=== PATIENT | male | born 1965 | race Hispanic/Latino ===

== ENCOUNTER 2017-11-07 01:20 | Inpatient (IN) | payer OTHER, SELFPAY ==
[2017-11-07] MEDS ORDERED: Nitroglycerin 0.4 MG TAB (25 Tab Bottle) ONE (01:51)
[2017-11-07] MEDS ORDERED: Nitroglycerin 2% Ointment 1 INCH/1 GM Packet ONE (01:55)
[2017-11-07 01:57] LABS: #Basophils 0.1 thou/uL (0.0-0.2); #Eosinphils 0.2 thou/uL (0.0-0.7); #Lymphocytes 3.6 thou/uL (1.20-3.40); #Monocytes 0.8 thou/uL (0.11-0.59); #Neutrophils 6.3 thou/uL (1.40-6.50); %Basophils 1.2 % (0.0-1.0); %Eosinophils 1.6 % (0.0-10.0); %Lymphocytes 32.8 % (21.0-51.0); %Monocytes 7.1 % (0.0-10.0); %Neutrophils 57.2 % (42.0-75.0); Hemoglobin 15.8 g/dL (14.0-18.0); Mean Corpuscular HGB CONC 36.1 g/dL (32.0-36.0); Mean Corpuscular Hemoglobin 32.9 pg (27.0-31.0); Mean Corpuscular Volume 91.1 fL (78.0-98.0); Mean Platelet Volume 6.3 fL (7.4-10.4); Platelet Count 287 thou/uL (130-400); RBC Distribution Width 11.9 % (11.5-14.5); Red Blood Cell (RBC) Count 4.79 mill/uL (4.70-6.10)
[2017-11-07 02:19] LABS: ALT (SGPT) 19 U/L (8-55); AST (SGOT) 23 U/L (5-34); Albumin 4.6 g/dL (3.5-5.0); Alkaline Phosphatase 113 U/L (40-150); Anion Gap 14 mmol/L (10-20); BUN (Urea Nitrogen) 13 mg/dL (8.4-25.7); Bilirubin, Total 0.5 mg/dL (0.2-1.2); CK (CPK) 339 U/L (30-200); Calc. Creatinine Clearance 0 mL/min (70-130); Calcium 9.8 mg/dL (7.8-10.44); Carbon Dioxide 26 mmol/L (22-29); Chloride 101 mmol/L (98-107); Estimated GFR-MDRD 76; Glucose 124 mg/dL (70-105); Lipase 28 U/L (8-78); Potassium 3.9 mmol/L (3.5-5.1); Protein, Total 7.6 g/dL (6.0-8.3); Sodium 137 mmol/L (136-145)
[2017-11-07 02:20] LABS: CKMB 4.3 ng/mL (0-6.6); Troponin I 0.047 ng/mL (< 0.028)
[2017-11-07] MEDS ORDERED: Sodium Chloride 0.9% 1,000 ML IV SCH (03:00)
[2017-11-07] MEDS ORDERED: hydrALAZINE 20 MG/ML VIAL SLOW IVP PRN (03:11)
[2017-11-07] MEDS ORDERED: Amlodipine 10 MG TAB PO SCH (03:15)
[2017-11-07] MEDS ORDERED: Lidocaine 2% Viscous Solution 10 ML, Aluminum & Magnesium Hydroxide 30 ML SSW SCH (03:15)
--- NOTE | 2017-11-07 03:30 | HP ---
CHIEF COMPLAINT: Chest pain. HISTORY OF PRESENT ILLNESS: Patient is a 52-year-old male with no significant past medical history who presents to the hospital with chest pain x1 day. Patient stated that he was at work when he felt a burning-like sensation going up and down his throat and also radiating to bilateral upper extremities. Patient stated that his pain initially was on and off; however, when he got home , his pain started getting progressive and started lasting much more longer which concerned him, so he came into the ER for further evaluations. Patient denies any fevers or chills. He denies any nausea, vomiting or diarrhea. He denies any abdominal pain. Patient states that this has never happened to him before. The patient states that at times it is a burning-like sensation; however, at times he feels like a pressure-like sensation. Patient was found to have a blood pressure high up in the 200s systolic on presentation. PAST MEDICAL HISTORY: None. SOCIAL HISTORY: He smokes half a pack a day. Denies any alcohol or drug use. PAST SURGICAL HISTORY: None. FAMILY HISTORY: None. REVIEW OF SYSTEMS: All negative except for the ones mentioned above in the HPI. meds: none PHYSICAL EXAMINATION: VITAL SIGNS: Blood pressure 162/102, pulse 69, respirations 14, O2 sat 94% on room air. GENERAL: He is awake, alert, oriented x3, does not appear in distress. HEENT: Normocephalic, atraumatic. NECK: No lymphadenopathy noted. CARDIOVASCULAR: S1, S2 present. No murmurs, rubs or gallops. LUNGS: Clear upon auscultation. No rhonchi or wheezes noted. ABDOMEN: Soft, nontender. Bowel sounds present x2. He does not have any pain upon palpation around his epigastric area or anywhere else. EXTREMITIES: No edema. NEUROLOGIC: Otherwise no abnormalities noted. SKIN: No lesions noted. LABORATORY DATA: As of the following: Sodium of 137, potassium of 3.9, BUN of 13, creatinine of 1.03. His troponin x1 was 0.047. Initially, CK was 339. His Hematology: WBCs of 11.0, hemoglobin of 15.8, hematocrit of 43.6, platelets of 287. X-ray, no acute abnormalities noted. EKG, he did have some minor ST changes in 1-2 leads; however, they were not significant. ASSESSMENT AND PLAN: Patient is a very pleasant 52-year-old male who presents to the hospital with chest pain. 1. Atypical chest pain. Differential at this time could be secondary to either reflux versus cardiac versus gastritis. Patient does have risk factors for heart disease including hypertension which is most likely undiagnosed because he does not go to doctors. The other reason could be he is male, he is around that age and also has a history of smoking. We will go ahead and do a stress test also get his blood pressure under control. We will start him on some Norvasc today and also, we will give him some PRNs. We will check a lipid panel. We will also give him a GI cocktail and also give him Pepcid b.i.d. to see if that helps with his pain. 2. hypertension emergency: will start pt on norvasc and he will need additional bp meds. 3. Smoking cessation. Patient talked to patient about smoking cessation. He does not want a nicotine patch and he also states that he does not have a feeling for smoking right now and he understands the risks and benefits of smoking. 4. Deep venous thrombosis prophylaxis. We will put the patient on subQ heparin and we will continue to monitor. MTDD
[2017-11-07 04:40] LABS: Cardiac Risk 4.9 (Less than 4.5)
[2017-11-07 04:41] VITALS: BMI 24.2
[2017-11-07] MEDS ORDERED: ADENOSINE 60 MG/20 ML VIAL ONE (07:50)
[2017-11-07] MEDS: Nitroglycerin 2% Ointment 1 INCH/1 GM Packet TOP SCH ×2 (08:22→14:24)
[2017-11-07 08:49] LABS: Troponin I 0.258 ng/mL (< 0.028)
[2017-11-07] MEDS: Aspirin 325 MG TAB PO SCH (08:49)
--- NOTE | 2017-11-07 08:56 | RAD ---
PORTABLE CHEST: Date: 11/07/17 PROVIDED CLINICAL HISTORY: Chest pain. FINDINGS: Cardiac silhouette appears prominent, likely at least partially on the basis of portable technique. T here is no focal consolidation, pleural fluid, or pneumothorax apparent. IMPRESSION: No evidence for an acute cardiopulmonary process. POS: TIAGO
[2017-11-07] MEDS ORDERED: Famotidine/PF 20 mg/2ml Vial SLOW IVP SCH (09:00)
--- NOTE | 2017-11-07 14:34 | NM ---
MYOCARDIAL PERFUSION SCAN: Date: 11/07/17 PROVIDED CLINICAL HISTORY: Chest pain. RADIOPHARMACEUTICAL: 28.1 mCi technetium-99m labeled sestamibi IV at stress. 10 mCi technetium-99m labeled sestamibi IV at rest. FINDINGS: There is moderate sized area of mildly diminished radiotracer accumulation involving the inferior wal l on both stress and rest images without attenuation correction. This normalizes with the application of attenuation correction. There is no evidence for a reversible defect involving the left ventricul ar myocardium. Gated data demonstrates mild inferior wall hypokinesis and impaired thickening. LVEF o f 47%. IMPRESSION: 1. No scintigraphic evidence for ischemia. 2. Fixed defect involving the inferior wall likely reflects a combination of diaphragmatic attenuati on and scar. 3. LVEF 47%. POS: GRACE
--- NOTE | 2017-11-07 16:35 | PDOC.PN ---
- Subjective Encounter Start Date: 11/07/17 Encounter Start Time: 16:34 Pt seen for followup re: chest pain. Reports chest pain is better. No nausea or vomiting. No fevers or chills. - Objective MAR Reviewed: Yes Vital Signs & Weight: Vital Signs (12 hours) Temp Pulse Resp BP Pulse Ox 11/07/17 15:19 98.4 F 62 18 130/78 96 11/07/17 11:40 97.9 F 65 18 139/74 94 L 11/07/17 08:06 98.5 F 70 16 11/07/17 07:31 98.5 F 70 16 127/68 96 11/07/17 05:39 97.5 F L 67 16 11/07/17 04:41 97.5 F L 67 16 132/77 97 Weight Weight 145 lb 6.4 oz I&O: 11/06/17 11/07/17 11/08/17 06:59 06:59 06:59 Intake Total 10 Balance 10 Result Diagrams: 11/07/17 01:48 11/07/17 01:48 EKG Reviewed by me: Yes (Tele: NSR) Phys Exam - Physical Examination Constitutional: NAD HEENT: moist MMs, sclera anicteric, oral pharynx no lesions, 2+ tonsils Neck: no nodes, no JVD, supple, full ROM Respiratory: no wheezing, no rales, no rhonchi, clear to auscultation bilateral Cardiovascular: RRR, no rub S1, s2 Gastrointestinal: soft, non-tender, no distention, positive bowel sounds Neurological: moves all 4 limbs Psychiatric: normal affect, A&O x 3 Dx/Plan (1) Chest pain Code(s): R07.9 - CHEST PAIN, UNSPECIFIED Status: Acute (2) Leucocytosis Code(s): D72.829 - ELEVATED WHITE BLOOD CELL COUNT, UNSPECIFIED Status: Acute Comment: no evidence of infection from ROS, recheck CBC (3) Tobacco use Code(s): Z72.0 - TOBACCO USE Status: Chronic Comment: counseled re: tobacco cessation, start nicotine replacement patch (4) Dyslipidemia Code(s): E78.5 - HYPERLIPIDEMIA, UNSPECIFIED Status: Chronic Comment: started on statin - Plan * . Review of Systems - Medications/Allergies Allergies/Adverse Reactions: Allergies Allergy/AdvReac Type Severity Reaction Status Date / Time No Known Drug Allergies Allergy Verified 11/07/17 04:34 Medications: Current Medications Aspirin (Aspirin) 325 mg PO DAILY [facility] Last Admin: 11/07/17 08:49 Dose: 325 mg Atorvastatin Calcium (Lipitor) 10 mg PO HS [facility] Carvedilol (Coreg) 3.125 mg PO BID[facility] Famotidine (Pepcid) 20 mg PO BID [facility] Hydralazine HCl (Apresoline) 5 mg SLOW IVP Q4H PRN PRN Reason: Blood Pressure Sodium Chloride (Flush - Normal Saline) 10 ml IVF Q12HR [facility] Last Admin: 11/07/17 08:50 Dose: Not Given Sodium Chloride (Flush - Normal Saline) 10 ml IVF PRN PRN PRN Reason: Saline Flush
[2017-11-07] MEDS: Carvedilol 3.125 MG TAB PO SCH (16:54)
[2017-11-07] MEDS: Nicotine 14 MG PATCH TD SCH (16:55)
[2017-11-07] MEDS: Atorvastatin Calcium 10 MG TAB PO SCH (20:10)
[2017-11-07] MEDS: Famotidine 20 MG TAB PO SCH (20:11)
[2017-11-08 05:07] LABS: #Basophils 0.1 thou/uL (0.0-0.2); #Eosinphils 0.1 thou/uL (0.0-0.7); #Lymphocytes 3.3 thou/uL (1.20-3.40); #Monocytes 0.6 thou/uL (0.11-0.59); #Neutrophils 6.2 thou/uL (1.40-6.50); %Basophils 0.6 % (0.0-1.0); %Eosinophils 1.1 % (0.0-10.0); %Lymphocytes 31.9 % (21.0-51.0); %Monocytes 6.1 % (0.0-10.0); %Neutrophils 60.3 % (42.0-75.0); Hemoglobin 14.4 g/dL (14.0-18.0); Mean Corpuscular HGB CONC 35.8 g/dL (32.0-36.0); Mean Corpuscular Hemoglobin 33.2 pg (27.0-31.0); Mean Corpuscular Volume 92.5 fL (78.0-98.0); Mean Platelet Volume 6.4 fL (7.4-10.4); Platelet Count 254 thou/uL (130-400); RBC Distribution Width 12.1 % (11.5-14.5); Red Blood Cell (RBC) Count 4.34 mill/uL (4.70-6.10); White Blood Cell (WBC) Count 10.3 thou/uL (4.8-10.8)
[2017-11-08 05:09] LABS: Anion Gap 11 mmol/L (10-20); BUN (Urea Nitrogen) 14 mg/dL (8.4-25.7); Calc. Creatinine Clearance 95 mL/min (70-130); Calcium 9.3 mg/dL (7.8-10.44); Carbon Dioxide 25 mmol/L (22-29); Chloride 106 mmol/L (98-107); Estimated GFR-MDRD Greater than 90; Glucose 98 mg/dL (70-105); Potassium 3.9 mmol/L (3.5-5.1); Sodium 138 mmol/L (136-145)
[2017-11-08] MEDS: Aspirin 325 MG TAB PO SCH (08:19)
[2017-11-08] MEDS: Famotidine 20 MG TAB PO SCH ×2 (08:20→21:15)
[2017-11-08] MEDS: Carvedilol 3.125 MG TAB PO SCH ×2 (08:20→16:42)
--- NOTE | 2017-11-08 09:02 | CON ---
Room Number: 232. PRIMARY CARE PHYSICIAN: George Carnes M.D. PRIMARY MANAGER COMPETITIVE INTELLIGENCE: Dr. Vianca Pereira. REFERRING PHYSICIAN: Dr.Karishma Beverly MD REASON FOR CARDIOLOGY CONSULT: Abnormal stress test result. HISTORY OF PRESENT ILLNESS: Mr. James is a 52-year-old male with no significant past medica l history. Patient on Thursday11/06/2017, whole day, he has had intermittent burning-like sensation t o mediastinal area like 5 minutes every hour. He work as a construction and whole day, he has those symptom without any other cardiac symptom, but however, at 10:00 p.m. on the same day burning sensati ons started getting more severe and he started having experienced symptoms almost every 10 minutes an d also the sensation that radiated to bilateral his neck and to the bilateral arms. He also had expe rience of dizziness all during the episode. Due to those worsening of his symptoms, patient decided to present to Emergency Department for the further evaluation and treatment. At the ER, the patient received the morphine and some medication for the GI symptoms and patient's symptoms subside; however , this morning, the patient has the same sensation for 30 minutes this morning prior to the stress te st and the patient underwent stress test today, which shows no significant evidence of ischemia; serna jaclyn, they have defect involving the inferior wall, possible from the diaphragm or scar with EF of 47%. He never has cardiac workup before and during the initial Cardiology consult assessment, the patient denies any chest pain or heaviness or tightness or burning-like sensation in his chest, palp itation pain to his neck or shoulders or shortness of breath, dizziness, lightheadedness, or an y other cardiac complaints. PAST MEDICAL HISTORY: None. PAST SURGICAL HISTORY: None. FAMILY HISTORY: There are significant history of diabetes and the patient's mother had a history of CVA. SOCIAL HISTORY: He . He had 2 children who live well and healthy. He walked at a [employer] on field, he exercise at least 2 or 3 times a week like 30-40 minutes a day. He continues smoking medellin lf pack a day, but he willing to quit smoking. He denies any alcohol or illicit drug abuse. ALLERGIES: He has no known drug allergies. REVIEW OF SYSTEMS: A 12-point review of systems is negative except for the one mentioned above in HP I. PHYSICAL EXAMINATION: VITAL SIGNS: Blood pressure 130/78, pulse is 62, sinus rhythm, respiratory rate 18, and temperature 98.4. GENERAL: Well-developed and well-nourished without any acute distress. HEAD: Atraumatic. Normocephalic. Eyes Extraocular muscle movement intact. ENT/MOUTH: Nasal and oral mucosa is moist without lesion. NECK: No JVD. Neck supple, normal range of motion. LUNGS: Clear to auscultation bilaterally. No wheezing, rales or rhonchi noted. CARDIOVASCULAR: Regular heart rhythm, normal S1, S2. No S3, S4. No thrill, hives or bruit noted. They have a 2+ pulses in bilateral dorsalis pedis, posterior tibial and popliteal and femoral arterie s. EXTREMITIES: There is no edema in the bilateral lower extremities. Patient deny calcification. ABDOMEN: Soft, nontender or mass to palpate. Normal active sounds. MUSCULOSKELETAL: Patient able to move all extremities. SKIN: Warm and dry. No bruits, lesion, or rash noted. NEUROLOGIC: Patient alert, oriented x4, nonfocal. Normal affect. PSYCHIATRIC: Mood and affect are normal. EKG: A 12-lead EKG at ER, shows sinus bradycardia, heart rate [address] depression in the V5 a nd V6. Other than that, no T-wave change. The patient's chest x-ray revealed no evidence of acute c ardiopulmonary process. LABORATORY DATA: WBC of 11.0, hemoglobin 15.8, hematocrit 43.6, platelet 287. Sodium 137, potassium 3.9, BUN 13, creatinine 1.03, AST 23, ALT 19. CK is 339. CK-MB 4.3, troponin 0.047, 0.190, and 0.2 58. Total cholesterol 225, triglycerides 232, HDL 46 and LDL 133. ASSESSMENT AND PLAN: 1. Chest pain and abnormal cardiac enzyme result and a stress test. Due to abnormal cardiac enzyme result in the stress test, the patient has plan to undergo cardiac catheterization on this coming Thu11/09/2017. A low dose of beta sandeep was started from today also low dose of beta sandeep and simvastatin was started from today. The patient on aspirin 325 mg once a day. We like to continue t o monitor on the telemetry. 2. Hyperlipidemia. The patient on some statin medication. 3. Current smoker, smoking sensation indication was giving to the patient. The patient is willing t o quit smoking and continue exercise. Thank you very much for allowing the Cardiology Service to participate in care of this patient. We w ill follow along with the patient care team and make further recommendation as appropriate.
--- NOTE | 2017-11-08 09:02 | ADD-CON ---
ADDENDUM: DATE OF ADMISSION: 11/07/2017 DATE OF CONSULTATION: 11/07/2017 INDICATION FOR CONSULTATION: This is a 52-year-old patient with recent onset of chest pain which wayne ear to be unstable angina-type symptoms. He underwent stress testing today and was found to have abn ormal stress test what appeared to be an inferior scar with some reversibility, actually appeared to be even improved with the stress images that did in the rest images. He also has a long history of t obacco abuse. He smokes half a pack a day, smoked for about 40 years. At this time, he is asymptoma tic. His cardiac enzymes have increased from 0.047 up to 0.258 and most likely with a non-ST segment elevation myocardial infarction. 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 He also has hypercholesterolemia, his LDL level was 133 with trigly ceride levels of 232. His HDL was 46. He has had no previous cardiac history that he is aware of, b ut given his overall history, it appears that this gentleman is having unstable anginal-type symptoms and I have advised him to undergo cardiac catheterization. At this time, he is pain free and is asy mptomatic and EKG changes nonspecific type changes. PHYSICAL EXAMINATION: GENERAL: Reveals a well-developed, well-nourished gentleman in no acute distress. He is alert. He is oriented, very pleasant gentleman. VITAL SIGNS: Blood pressure 124/61, heart rate is 63 and regular. He is afebrile, respiratory rate is 14. HEENT: Shows head to be normocephalic and atraumatic. Carotid pulses are present. There were no br uits. CHEST: No rales, rhonchi, or wheezing were noted. Chest was clear to auscultation otherwise. CARDIOVASCULAR: Reveals a regular rate and rhythm with normal S1, S2. There is no S3, S4. There we re no significant murmurs, heaves, thrills, bruits, or rubs. ABDOMEN: Soft and nontender. Positive bowel sounds are present. EXTREMITIES: Show no clubbing, cyanosis, or edema. Pedal pulses are present. NEUROLOGIC: The patient appears to be fully intact with normal strength and normal tone. SKIN: Warm and dry. LABORATORY DATA: Specific for the cardiac enzymes above, also creatinine is 1.03. His hemoglobin wa s 15.8. I did explain to him that most likely he will best be served by undergoing cardiac catheterization. We will try to do a radial approach. We will plan this for Thursday unless the patient becomes unstabl e in the interim. Otherwise, we will plan for cardiac catheterization on Thursday. ASSESSMENT AND PLAN: 1. History of tobacco abuse. He was strongly encouraged to stop smoking, perhaps need some assistan ce in doing so. 2. History of hypercholesterolemia. We will need to start him on medications for the hypercholester olemia. At this time, he is on atorvastatin as well as beta blockers. We will continue atorvastatin at this time. We will need to be followed by the primary care physician for compliance and also to ensure that his cholesterol level is getting under better control.
--- NOTE | 2017-11-08 12:59 | PDOC.PN ---
- Subjective Encounter Start Date: 11/08/17 Encounter Start Time: 07:40 Pt seen for followup re: chest pain. Denies chest pain, shortness of breath, fevers or chills. - Objective MAR Reviewed: Yes Vital Signs & Weight: Vital Signs (12 hours) Temp Pulse Resp BP Pulse Ox 11/08/17 11:41 97.2 F L 59 L 16 119/75 96 11/08/17 08:16 97.8 F 63 17 129/74 95 11/08/17 06:20 97.9 F 58 L 14 115/64 95 Weight Weight 147 lb 6.4 oz I&O: 11/07/17 11/08/17 11/09/17 06:59 06:59 06:59 Intake Total 10 540 Balance 10 540 Result Diagrams: 11/08/17 04:26 11/08/17 04:27 EKG Reviewed by me: Yes (Tele: NSR) Phys Exam - Physical Examination Constitutional: NAD HEENT: moist MMs, sclera anicteric, oral pharynx no lesions, 2+ tonsils Neck: no nodes, no JVD, supple, full ROM Respiratory: no wheezing, no rales, no rhonchi, clear to auscultation bilateral Cardiovascular: RRR, no rub S1, S2 Gastrointestinal: soft, non-tender, no distention, positive bowel sounds Neurological: moves all 4 limbs Psychiatric: normal affect, A&O x 3 Dx/Plan (1) Chest pain Code(s): R07.9 - CHEST PAIN, UNSPECIFIED Status: Acute Comment: for cath tomorrow (2) Tobacco use Code(s): Z72.0 - TOBACCO USE Status: Chronic Comment: continue nicotine patch (3) Dyslipidemia Code(s): E78.5 - HYPERLIPIDEMIA, UNSPECIFIED Status: Chronic Comment: continue statin (4) Leucocytosis Code(s): D72.829 - ELEVATED WHITE BLOOD CELL COUNT, UNSPECIFIED Status: Resolved Comment: no evidence of infection - Plan * . Review of Systems - Review of Systems Constitutional: negative: fever, chills, sweats, weakness, malaise Respiratory: negative: Cough, Shortness of Breath, SOB with Excertion, Pleuritic Pain, Wheezing Cardiovascular: negative: chest pain, palpitations, orthopnea, paroxysmal nocturnal dyspnea, edema, light headedness Gastrointestinal: negative: Nausea, Vomiting, Abdominal Pain, Diarrhea, Constipation, Melena, Hematochezia Genitourinary: negative: Dysuria, Frequency, Incontinence, Hematuria, Retention Skin: negative: Rash, Lesions, Ji, Bruising - Medications/Allergies Allergies/Adverse Reactions: Allergies Allergy/AdvReac Type Severity Reaction Status Date / Time No Known Drug Allergies Allergy Verified 11/07/17 04:34 Medications: Current Medications Aspirin (Aspirin) 325 mg PO DAILY [facility] Last Admin: 11/08/17 08:19 Dose: 325 mg Atorvastatin Calcium (Lipitor) 10 mg PO HS [facility] Last Admin: 11/07/17 20:10 Dose: 10 mg Carvedilol (Coreg) 3.125 mg PO BID[facility] Last Admin: 11/08/17 08:20 Dose: 3.125 mg Famotidine (Pepcid) 20 mg PO BID [facility] Last Admin: 11/08/17 08:20 Dose: 20 mg Hydralazine HCl (Apresoline) 5 mg SLOW IVP Q4H PRN PRN Reason: Blood Pressure Nicotine (Nicoderm Patch) 14 mg TD Q24HR [facility] Last Admin: 11/07/17 16:55 Dose: Not Given Sodium Chloride (Flush - Normal Saline) 10 ml IVF Q12HR [facility] Last Admin: 11/08/17 08:20 Dose: 10 ml Sodium Chloride (Flush - Normal Saline) 10 ml IVF PRN PRN PRN Reason: Saline Flush
--- NOTE | 2017-11-08 13:15 | PDOC.CTH ---
<Samira Sierra - Last Filed: 11/08/17 12:28> Cardiology Progress Note - Subjective The pt seen and examined. No overnight events. No cardiac complaints. - Objective Vital Signs Temp Pulse Resp BP Pulse Ox 11/08/17 11:41 97.2 F L 59 L 16 119/75 96 11/08/17 08:16 97.8 F 63 17 129/74 95 11/08/17 06:20 97.9 F 58 L 14 115/64 95 Weight 147 lb 6.4 oz 11/07/17 11/08/17 11/09/17 06:59 06:59 06:59 Intake Total 10 540 Balance 10 540 - Physical Examination General/Neuro: alert & oriented x3 Neck: no JVD present Lungs: CTA Heart: RRR Abdomen: soft Extremities: other: (No edema) - Telemetry Telemetry Rhythm: SB to SR 56-60s. - Labs Result Diagrams: 11/08/17 04:26 11/08/17 04:27 Troponin/CKMB CK-MB (CK-2) 4.3 ng/mL (0-6.6) 11/07/17 01:47 Troponin I 0.258 ng/mL (< 0.028) H 11/07/17 07:58 - Assessment/Plan 1. Chest pain with abnormal stress test result on 11/07/17 - Plan for LHC on 11/09/[address] Pereira 2. Hyperlipidemia - dfr 3. Current smoker - smoking cessation education given to the pt and family. MAR reviewed * Plan for LHC on 11/09/[address] Pereira; The procedure of LHC and the risk were explained to the pt and family. The risk were included but not limited to: hemorrhage, infection, perforation, thrombosis, CVA, IA, allergic reaction, and possible . The pt and family voiced understanding and no more questions at this time. Review of Systems - Review of Systems Constitutional: reports: no symptoms reported EENTM: reports: no symptoms reported Respiratory: reports: no symptoms reported Cardiac (ROS): reports: no symptoms reported ABD/GI: reports: no symptoms reported : reports: no symptoms reported Musculoskeletal: reports: no symptoms reported <Haseeb Pereira - Last Filed: 11/08/17 22:47> Cardiology Progress Note - Objective Vital Signs Temp Pulse Resp BP Pulse Ox 11/08/17 20:08 97.8 F 65 17 145/73 H 98 11/08/17 16:38 97.9 F 66 16 168/82 H 96 11/08/17 11:41 97.2 F L 59 L 16 119/75 96 Weight 147 lb 6.4 oz 11/07/17 11/08/17 11/09/17 06:59 06:59 06:59 Intake Total 10 540 480 Balance 10 540 480 - Labs Result Diagrams: 11/08/17 04:26 11/08/17 04:27 Troponin/CKMB CK-MB (CK-2) 4.3 ng/mL (0-6.6) 11/07/17 01:47 Troponin I 0.258 ng/mL (< 0.028) H 11/07/17 07:58 - Assessment/Plan Pt. was seen and eval. by me. I have discussed the management of the pt. and agree with the A/P by the CARLOS ENRIQUE Sierra.
[2017-11-08] MEDS ORDERED: Communication Order-Pharmacy FS SCH (13:30)
[2017-11-08] MEDS: Nicotine 14 MG PATCH TD SCH (18:13)
[2017-11-08] MEDS: Atorvastatin Calcium 10 MG TAB PO SCH (21:15)
[2017-11-09] MEDS: Aspirin 325 MG TAB PO SCH (05:13)
[2017-11-09] MEDS: Carvedilol 3.125 MG TAB PO SCH ×2 (05:13→16:03)
[2017-11-09] MEDS: Famotidine 20 MG TAB PO SCH (05:13)
[2017-11-09 05:43] LABS: #Basophils 0.1 thou/uL (0.0-0.2); #Eosinphils 0.1 thou/uL (0.0-0.7); #Lymphocytes 3.1 thou/uL (1.20-3.40); #Monocytes 0.6 thou/uL (0.11-0.59); %Basophils 0.6 % (0.0-1.0); %Eosinophils 1.4 % (0.0-10.0); %Lymphocytes 34.8 % (21.0-51.0); %Monocytes 6.5 % (0.0-10.0); %Neutrophils 56.7 % (42.0-75.0); Hemoglobin 14.9 g/dL (14.0-18.0); Mean Corpuscular HGB CONC 35.2 g/dL (32.0-36.0); Mean Corpuscular Hemoglobin 32.4 pg (27.0-31.0); Mean Corpuscular Volume 92.1 fL (78.0-98.0); Mean Platelet Volume 6.7 fL (7.4-10.4); Platelet Count 257 thou/uL (130-400); Red Blood Cell (RBC) Count 4.59 mill/uL (4.70-6.10); White Blood Cell (WBC) Count 8.8 thou/uL (4.8-10.8)
[2017-11-09 05:56] LABS: Anion Gap 14 mmol/L (10-20); BUN (Urea Nitrogen) 16 mg/dL (8.4-25.7); Calc. Creatinine Clearance 94 mL/min (70-130); Carbon Dioxide 21 mmol/L (22-29); Chloride 106 mmol/L (98-107); Estimated GFR-MDRD Greater than 90; Glucose 78 mg/dL (70-105); Potassium 3.8 mmol/L (3.5-5.1); Sodium 137 mmol/L (136-145)
[2017-11-09] MEDS ORDERED: Lidocaine 1% (PF) 30 ML VIAL ONE (08:36)
[2017-11-09] MEDS ORDERED: Verapamil 5 MG/2 ML VIAL ONE (09:02)
[2017-11-09] MEDS ORDERED: Heparin 10,000 UNITS/1 ML VIAL ONE (09:02)
[2017-11-09] MEDS ORDERED: Nitroglycerin 100MG/250ML BOT 250 ML ONE (09:02)
[2017-11-09] MEDS ORDERED: TICAGRELOR 90 MG TABLET ONE (09:51)
[2017-11-09] MEDS ORDERED: Iopamidol 370 76% 50 ML VIAL FS ONE (13:24)
[2017-11-09] MEDS ORDERED: Iopamidol 370 76% 100 ML VIAL ONE (13:24)
--- NOTE | 2017-11-09 15:33 | PDOC.CTH ---
Cardiology Progress Note - Subjective The pt seen and examined. No overnight events. No cardiac complaints. No bleeding or hematoma to Rt wrist. - Objective Vital Signs Temp Pulse Resp BP Pulse Ox 11/09/17 11:42 97.8 F 60 16 116/99 H 98 11/09/17 10:30 58 L 17 155/83 H 97 11/09/17 08:36 97.7 F 58 L 17 168/79 H 96 11/09/17 05:10 97.8 F 64 14 123/78 98 Weight 147 lb 1.6 oz 11/08/17 11/09/17 11/10/17 06:59 06:59 06:59 Intake Total 540 960 672 Output Total 400 Balance 540 960 272 - Physical Examination General/Neuro: alert & oriented x3 Neck: no JVD present Lungs: CTA Heart: RRR Abdomen: soft Extremities: other: (No edema) - Telemetry Telemetry Rhythm: SR - Labs Result Diagrams: 11/09/17 04:22 11/09/17 04:22 Troponin/CKMB CK-MB (CK-2) 4.3 ng/mL (0-6.6) 11/07/17 01:47 Troponin I 0.258 ng/mL (< 0.028) H 11/07/17 07:58 - Assessment/Plan 1 CAD with s/p Cath with BMS x1 in RCA on 11/09/17 - Brilinta BID, Coreg 3.125mg BID, Lipitor 10mg, ASA 81mg qd. 2. HTN - stable 3. Current smoker - smoking cessation education given to the pt and family. MAR reviewed * From Cardiac standpoint, the pt can be d/brandie home this PM when the pt's VS is stable. The pt will f/u with Dr Pereira' office within 2-4 wks. * The pt will d/c with [facility]. Review of Systems - Review of Systems Constitutional: reports: no symptoms reported EENTM: reports: no symptoms reported Respiratory: reports: no symptoms reported Cardiac (ROS): reports: no symptoms reported ABD/GI: reports: no symptoms reported : reports: no symptoms reported Musculoskeletal: reports: no symptoms reported
[2017-11-09 16:36] VITALS: BP 134/79; TEMP 97.9
[2017-11-09] MEDS: Nicotine 14 MG PATCH TD SCH (18:10)
[2017-11-09] MEDS ORDERED: TICAGRELOR 90 MG TABLET PO SCH (21:00)
--- NOTE | 2017-11-10 08:41 | DIS ---
DISCHARGE DISPOSITION: Home. FOLLOWUP: Follow up with primary care physician at [facility]. Follow up with Dr. Pereira in 2 weeks. ALLERGIES: No known drug allergies. The patient was seen and examined on the day of discharge. Denies any new complaints, no chest pain , shortness of breath, palpitations. DISCHARGE MEDICATIONS: Aspirin 81 mg daily, Lipitor 10 mg at bedtime, carvedilol 3.125 mg twice a da y, Brilinta 90 mg b.i.d. The patient was extensively counseled to continue dual antiplatelet therapy for 1 year. INPATIENT PROCEDURES: On 11/09/2017 the patient underwent drug-eluting stent placement to the mid RC A for 99% stenosis, left circumflex was normal. Left main was normal. First diagonal had 75% stenos is, 5 mm in length. BRIEF HOSPITAL COURSE: The patient is a 52-year-old male with tobacco dependence, presented to the ospital with chest discomfort. He was found to have troponin of 0.258. He was seen by Cardiology, Joanne Pereira. Stress test was done that showed ejection fraction 47% without any evidence of ischemia. e underwent cardiac catheterization as discussed above. The patient has been cleared by Cardiology f or discharge. Tobacco cessation was extensively emphasized. FINAL DIAGNOSES: 1. Chest discomfort with elevated troponins. 2. Coronary artery disease, status post stent placement as discussed above. 3. Tobacco dependence. 4. Dyslipidemia. Fasting lipid profile showed triglyceride 232, cholesterol 225, LDL 133, HDL 46. Plan of care was discussed with the patient in detail. He stated understanding.
== END 2017-11-09 19:46 | disposition home or self-care (01) | DRG 247 ==
LOC: ERS 01:20 → OBSVTOIN 03:48 → 2SW 03:48 → 2NO 17:15
PROVIDERS: ADMIT Internal Medicine; ATTEND Internal Medicine
PROC: 027034Z Dilation of Coronary Artery, One Artery with Drug-eluting Intraluminal Device, Percutaneous Approach (ICD-10-PCS; principal; 2017-11-09)
PROC: 4A023N7 Measurement of Cardiac Sampling and Pressure, Left Heart, Percutaneous Approach (ICD-10-PCS; 2017-11-09)
PROC: B2111ZZ Fluoroscopy of Multiple Coronary Arteries using Low Osmolar Contrast (ICD-10-PCS; 2017-11-09)
DX: I25.10 Atherosclerotic heart disease of native coronary artery without angina pectoris (principal); I16.1 Hypertensive emergency; R07.9 Chest pain, unspecified; E78.5 Hyperlipidemia, unspecified; E78.00 Pure hypercholesterolemia, unspecified; F17.210 Nicotine dependence, cigarettes, uncomplicated
CPT/HCPCS: 36415; 71045; 78452; 80048; 80053; 80061; 82553; 83690; 84484; 85025; 85347; 92928; 93005; 93010; 93017; 93458; 93798; 94760; 99406; A4216; A9500; C1769; C1874; C1887; C9600; J0153; J1644; J2001; S0028

== ENCOUNTER 2023-07-02 19:08 | Observation (INO) | payer OTHER, SELFPAY ==
[2023-07-02 20:05] LABS: #Basophils 0.1 thou/uL (0.0-0.2); #Eosinphils 0.2 thou/uL (0.0-0.7); #Monocytes 0.4 thou/uL (0.11-0.59); #Neutrophils 3.8 thou/uL (1.40-6.50); %Basophils 0.7 % (0.0-1.0); %Eosinophils 2.7 % (0.0-10.0); %Lymphocytes 38.5 % (21.0-51.0); %Monocytes 5.8 % (0.0-10.0); %Neutrophils 51.6 % (42.0-75.0); Hematocrit 39.7 % (42.0-52.0); Hemoglobin 14.3 g/dL (14.0-18.0); Mean Corpuscular Hemoglobin 31.4 pg (27.0-31.0); Mean Corpuscular Volume 87.1 fl (78.0-98.0); Mean Platelet Volume 8.9 fL (7.4-10.4); Platelet Count 235 10x3/uL (130-400); Red Blood Cell (RBC) Count 4.56 mill/uL (4.70-6.10); White Blood Cell (WBC) Count 7.4 10x3/uL (4.8-10.8)
[2023-07-02 20:27] LABS: ALT (SGPT) 17 U/L (8-55); AST (SGOT) 23 U/L (5-34); Albumin 4.2 g/dL (3.5-5.0); Alkaline Phosphatase 113 U/L (40-110); Anion Gap 16 mmol/L (10-20); BUN (Urea Nitrogen) 16 mg/dL (8.4-25.7); Bilirubin, Total 0.5 mg/dL (0.2-1.2); Calc. Creatinine Clearance 0 mL/min (70-130); Calcium 9.1 mg/dL (7.8-10.44); Carbon Dioxide 22 mmol/L (22-29); Chloride 104 mmol/L (98-107); Estimated GFR 90; Globulin 2.5 g/dL (2.4-3.5); Glucose 99 mg/dL (70-105); Potassium 3.6 mmol/L (3.5-5.1); Protein, Total 6.7 g/dL (6.0-8.3); Sodium 138 mmol/L (136-145)
[2023-07-02 20:30] LABS: Troponin I Less than 0.010 ng/mL (< 0.028)
[2023-07-02] MEDS ORDERED: Aspirin Chewable 81 MG TAB ONE (20:35)
[2023-07-02] MEDS ORDERED: hydrALAZINE 20 MG/ML VIAL ONE (21:42)
[2023-07-02] MEDS ORDERED: Ondansetron PF 4 MG/2 ML Vial IVP PRN (22:09)
[2023-07-02] MEDS ORDERED: Acetaminophen 325 MG TAB PO PRN (22:09)
[2023-07-02] MEDS ORDERED: Nitroglycerin 0.4 MG TAB (25 Tab Bottle) SL PRN (22:09)
[2023-07-03 00:16] LABS: Troponin I 0.015 ng/mL (< 0.028)
[2023-07-03 02:10] LABS: #Basophils 0.1 thou/uL (0.0-0.2); #Eosinphils 0.2 thou/uL (0.0-0.7); #Monocytes 0.5 thou/uL (0.11-0.59); #Neutrophils 4.3 thou/uL (1.40-6.50); %Basophils 0.8 % (0.0-1.0); %Eosinophils 2.5 % (0.0-10.0); %Lymphocytes 33.3 % (21.0-51.0); %Monocytes 6.6 % (0.0-10.0); %Neutrophils 56.1 % (42.0-75.0); Hematocrit 39.8 % (42.0-52.0); Hemoglobin 14.3 g/dL (14.0-18.0); Mean Corpuscular HGB CONC 35.9 g/dL (32.0-36.0); Mean Corpuscular Hemoglobin 31.2 pg (27.0-31.0); Mean Corpuscular Volume 86.7 fl (78.0-98.0); Mean Platelet Volume 8.9 fL (7.4-10.4); Platelet Count 224 10x3/uL (130-400); RBC Distribution Width 12.2 % (11.5-14.5); Red Blood Cell (RBC) Count 4.59 mill/uL (4.70-6.10); White Blood Cell (WBC) Count 7.6 10x3/uL (4.8-10.8)
[2023-07-03 02:25] LABS: Hemoglobin A1c 5.3 % (4.0-6.0)
[2023-07-03 02:31] LABS: Troponin I 0.025 ng/mL (< 0.028)
[2023-07-03 02:37] LABS: Anion Gap 14 mmol/L (10-20); BUN (Urea Nitrogen) 12 mg/dL (8.4-25.7); Calc. Creatinine Clearance 0 mL/min (70-130); Calcium 8.8 mg/dL (7.8-10.44); Carbon Dioxide 20 mmol/L (22-29); Cardiac Risk 5.1 (Less than 4.5); Chloride 106 mmol/L (98-107); Cholesterol 228 mg/dl (< 200 Desired); Estimated GFR 101; Glucose 107 mg/dL (70-105); HDL Cholesterol 45 mg/dL (>60 Neg Risk); LDL Cholesterol, Calculated 136 mg/dL; Potassium 3.7 mmol/L (3.5-5.1); Sodium 136 mmol/L (136-145); Triglycerides 234 mg/dL (Less than 150)
[2023-07-03] MEDS ORDERED: Aspirin Chewable 81 MG TAB ONE (08:42)
[2023-07-03] MEDS ORDERED: Carvedilol 6.25 MG TAB ONE (08:42)
[2023-07-03] MEDS ORDERED: Enoxaparin 40 MG (0.4 mL) SYRINGE ONE (08:43)
[2023-07-03] MEDS: Carvedilol 3.125 MG TAB PO SCH (09:01)
[2023-07-03] MEDS: Aspirin Chewable 81 MG TAB PO SCH (09:02)
[2023-07-03] MEDS: Enoxaparin 40 MG (0.4 mL) SYRINGE SC SCH (09:02)
[2023-07-03] MEDS ORDERED: ADENOSINE 60 MG/20 ML SDV ONE (12:12)
[2023-07-03 13:41] VITALS: BMI 26.2
[2023-07-03 16:22] VITALS: BP 183/89; TEMP 97.8
[2023-07-03] MEDS ORDERED: Atorvastatin Calcium 40 MG TAB PO SCH (21:00)
== END 2023-07-03 18:35 | disposition home or self-care (01) ==
LOC: ERS 19:08 → ERHOLD 22:05 → 2NO 07-03 16:10
PROVIDERS: ADMIT Internal Medicine; ATTEND Internal Medicine
DX: R07.9 Chest pain, unspecified (principal); I25.10 Atherosclerotic heart disease of native coronary artery without angina pectoris; I10 Essential (primary) hypertension; E78.5 Hyperlipidemia, unspecified; Z79.82 Long term (current) use of aspirin; Z79.899 Other long term (current) drug therapy; Z95.5 Presence of coronary angioplasty implant and graft
CPT/HCPCS: 36415; 71045; 78452; 80048; 80053; 80061; 83036; 84484; 85025; 85379; 93005; 93017; 96372; A9502; G0378; J0153; J0360; J1650

== ENCOUNTER 2023-10-06 21:03 | Emergency (ER) | payer BC, SELFPAY ==
[2023-10-06] MEDS ORDERED: Rabies Vaccine Human 2.5 UNITS VIAL ONE (22:36)
[2023-10-06] MEDS ORDERED: Rabies Immune Globulin/PF 300 UNITS/ML VIAL ONE (22:37)
== END 2023-10-06 23:41 | disposition home or self-care (01) ==
LOC: ERS 21:03
DX: S81.851A Open bite, right lower leg, initial encounter (principal); F17.210 Nicotine dependence, cigarettes, uncomplicated; W54.0XXA Bitten by dog, initial encounter; Z29.14 Encounter for prophylactic rabies immune globulin
CPT/HCPCS: 90375; 90471; 90675; 96372